=== PATIENT | female | born 1985 | race Caucasian/White ===

== ENCOUNTER 2016-10-04 21:38 | Emergency (ER) | payer SELFPAY ==
[2016-10-04 23:04] VITALS: BP 156/83
== END 2016-10-04 23:04 | disposition home or self-care (01) ==
LOC: ED 21:38
DX: H66.42 Suppurative otitis media, unspecified, left ear (principal); R03.0 Elevated blood-pressure reading, without diagnosis of hypertension
CPT/HCPCS: 90715; J2001

== ENCOUNTER 2016-12-11 09:31 | Emergency (ER) | payer SELFPAY ==
[~2016-12-11] VITALS: Ht 170.2 cm; Wt 113.4 kg
[2016-12-11 10:29] LABS: PLATELET COUNT 298 x10^3mcL (130-400)
[2016-12-11 10:30] LABS: RED CELL DISTRIBUTION WIDTH 15.7 % (11.5-14.5)
[2016-12-11 10:38] LABS: CALCIUM 8.9 mg/dL (8.5-10.1); CARBON DIOXIDE 26.8 mmol/L (21-32); CHLORIDE SERUM 105 mmol/L (98-107); CREATININE SERUM 0.9 mg/dL (0.6-1.0); GFR1 > 60 mL/min; GLUCOSE SERUM 107 mg/dL (74-106); POTASSIUM SERUM 4.9 mmol/L (3.5-5.1); SODIUM SERUM 139 mmol/L (136-145)
[2016-12-11 10:42] LABS: ALKALINE PHOSPHATASE 92 U/L (46-116); ALT/SGPT 33 U/L (14-59); AMYLASE 49 U/L (25-115); AST/SGOT 14 U/L (15-37); BILIRUBIN TOTAL 0.21 mg/dL (0.20-1.00); LIPASE 142 IU/L (73-393); TOTAL PROTEIN, SERUM 7.3 g/dL (6.4-8.2)
[2016-12-11 10:43] LABS: ALBUMIN 3.1 g/dL (3.4-5.0)
[2016-12-11 12:18] LABS: AMPHETAMINE QUAL UR NONE DETECTED (NEG <=1000)
[2016-12-11 13:50] VITALS: BP 128/71
== END 2016-12-11 13:50 | disposition home or self-care (01) ==
LOC: ED 09:31
PROVIDERS: Emergency Medicine
DX: K80.20 Calculus of gallbladder without cholecystitis without obstruction (principal); K21.9 Gastro-esophageal reflux disease without esophagitis; F17.200 Nicotine dependence, unspecified, uncomplicated
CPT/HCPCS: 83880; 99406; J1885; J2270; J2405; J3010; J7030; Q0162

== ENCOUNTER 2017-09-05 05:51 | Emergency (ER) | payer SELFPAY ==
[~2017-09-05] VITALS: Ht 170.2 cm; Wt 117.9 kg
[2017-09-05 06:44] LABS: BASOPHIL % 0.3 % (0-2); PLATELET COUNT 289 x10^3mcL (130-400)
[2017-09-05 06:45] LABS: RED CELL DISTRIBUTION WIDTH 15.8 % (11.5-14.5)
[2017-09-05 06:50] LABS: CALCIUM 9.1 mg/dL (8.5-10.1); CARBON DIOXIDE 24.8 mmol/L (21-32); CHLORIDE SERUM 102 mmol/L (98-107); CREATININE SERUM 0.9 mg/dL (0.6-1.0); GFR1 > 60 mL/min; GLUCOSE SERUM 100 mg/dL (74-106); POTASSIUM SERUM 3.9 mmol/L (3.5-5.1); SODIUM SERUM 138 mmol/L (136-145)
[2017-09-05 06:58] LABS: ALBUMIN 3.5 g/dL (3.4-5.0); ALKALINE PHOSPHATASE 93 U/L (46-116); ALT/SGPT 32 U/L (14-59); AMYLASE 55 U/L (25-115); AST/SGOT 14 U/L (15-37); BILIRUBIN TOTAL 0.2 mg/dL (0.20-1.00); LIPASE 178 IU/L (73-393)
[2017-09-05 07:00] LABS: TOTAL PROTEIN, SERUM 8.3 g/dL (6.4-8.2)
[2017-09-05 07:52] LABS: rbc morphology (normal/abnorm) ABNORMAL (NORMAL)
[2017-09-05 09:44] VITALS: BP 117/74
== END 2017-09-05 09:44 | disposition home or self-care (01) ==
LOC: ED 05:51
PROVIDERS: Emergency Medicine
DX: K80.20 Calculus of gallbladder without cholecystitis without obstruction (principal); E66.9 Obesity, unspecified; K21.9 Gastro-esophageal reflux disease without esophagitis
CPT/HCPCS: 83880; J2405; J3010; J7030

== ENCOUNTER 2018-04-26 12:32 | Emergency (ER) | payer BC ==
[~2018-04-26] VITALS: Ht 167.6 cm; Wt 120.7 kg
[2018-04-26 12:50] VITALS: Ht 167.6 cm; Wt 120.7 kg
[2018-04-26 13:48] LABS: CARBON DIOXIDE 22.4 mmol/L (21-32); CHLORIDE SERUM 102 mmol/L (98-107); CREATININE SERUM 0.8 mg/dL (0.6-1.0); GFR1 > 60 mL/min; GLUCOSE SERUM 129 mg/dL (74-106); SODIUM SERUM 135 mmol/L (136-145)
[2018-04-26 13:52] LABS: ALKALINE PHOSPHATASE 109 U/L (46-116); ALT/SGPT 45 U/L (14-59); AST/SGOT 19 U/L (15-37); BILIRUBIN TOTAL 0.2 mg/dL (0.20-1.00); LIPASE 130 IU/L (73-393)
[2018-04-26 13:54] LABS: ALBUMIN 3.2 g/dL (3.4-5.0); TOTAL PROTEIN, SERUM 8.3 g/dL (6.4-8.2)
[2018-04-26 14:00] LABS: PLATELET COUNT 108 x10^3mcL (130-400); RED CELL DISTRIBUTION WIDTH 16.1 % (11.5-14.5)
[2018-04-26 14:05] LABS: ATYPICAL LYMPH 4 %; MONOCYTE 3 % (0-7); SEGMENTED NEUTROPHILS 76 % (37-75); rbc morphology (normal/abnorm) ABNORMAL (NORMAL)
[2018-04-26 15:36] VITALS: BP 117/86
== END 2018-04-26 15:31 | disposition home or self-care (01) ==
LOC: ED 12:32
PROVIDERS: Emergency Medicine
DX: K29.70 Gastritis, unspecified, without bleeding (principal); Z90.49 Acquired absence of other specified parts of digestive tract; Z87.19 Personal history of other diseases of the digestive system
CPT/HCPCS: 36415; J1885; Q0092

== ENCOUNTER 2018-12-10 15:33 | Emergency (ER) | payer SELFPAY ==
[~2018-12-10] VITALS: Ht 170.2 cm; Wt 124.7 kg
[2018-12-10 15:45] VITALS: Ht 170.2 cm; Wt 124.7 kg
[2018-12-10 16:12] LABS: BASOPHIL % 1.4 % (0-2); PLATELET COUNT 312 x10^3mcL (130-400)
[2018-12-10 16:19] LABS: CALCIUM 9.3 mg/dL (8.5-10.1); CARBON DIOXIDE 27.5 mmol/L (21-32); CHLORIDE SERUM 103 mmol/L (98-107); CREATININE SERUM 0.8 mg/dL (0.6-1.0); GFR1 > 60 mL/min; GLUCOSE SERUM 107 mg/dL (74-106); POTASSIUM SERUM 4.3 mmol/L (3.5-5.1); SODIUM SERUM 138 mmol/L (136-145)
[2018-12-10 16:24] LABS: ALBUMIN 3.4 g/dL (3.4-5.0); ALKALINE PHOSPHATASE 93 U/L (46-116); ALT/SGPT 39 U/L (14-59); AST/SGOT 16 U/L (15-37); BILIRUBIN TOTAL 0.54 mg/dL (0.20-1.00); LIPASE 103 IU/L (73-393); TOTAL PROTEIN, SERUM 7.9 g/dL (6.4-8.2)
[2018-12-10 20:28] VITALS: BP 151/77
== END 2018-12-10 20:28 | disposition home or self-care (01) ==
LOC: ED 15:33
DX: K29.70 Gastritis, unspecified, without bleeding (principal); K21.9 Gastro-esophageal reflux disease without esophagitis; Z90.49 Acquired absence of other specified parts of digestive tract
CPT/HCPCS: 99406; J1885; J2270; J2405; J7030

== ENCOUNTER 2019-05-02 22:29 | Emergency (ER) | payer BC ==
[~2019-05-02] VITALS: Ht 170.2 cm; Wt 127.9 kg
[2019-05-02 22:39] VITALS: Ht 170.2 cm; Wt 127.9 kg
[2019-05-03 00:01] LABS: BASOPHIL % 0.9 % (0-2); PLATELET COUNT 323 x10^3mcL (130-400); RED CELL DISTRIBUTION WIDTH 16.1 % (11.5-14.5)
[2019-05-03 00:42] LABS: CALCIUM 8.8 mg/dL (8.5-10.1); CARBON DIOXIDE 30.5 mmol/L (21-32); CHLORIDE SERUM 102 mmol/L (98-107); CREATININE SERUM 0.9 mg/dL (0.6-1.0); GFR1 > 60 mL/min; GLUCOSE SERUM 96 mg/dL (74-106); POTASSIUM SERUM 3.3 mmol/L (3.5-5.1); SODIUM SERUM 140 mmol/L (136-145)
[2019-05-03 00:52] LABS: ALBUMIN 3.4 g/dL (3.4-5.0); ALKALINE PHOSPHATASE 101 U/L (46-116); ALT/SGPT 46 U/L (14-59); AST/SGOT 22 U/L (15-37); BILIRUBIN TOTAL 0.2 mg/dL (0.20-1.00); CHOLESTEROL 182 mg/dL (<200); LIPASE 138 IU/L (73-393); T4(THYROXINE) 9.4 ug/dL (4.7-13.3)
[2019-05-03 00:59] LABS: HDL CHOLESTEROL 24 mg/dL (40-60)
[2019-05-03 01:03] LABS: UA SPECIFIC GRAVITY >=1.030 (1.005-1.035); microscopic required? YES; urine erythrocyte 3+ (NEGATIVE)
[2019-05-03 01:15] LABS: AMPHETAMINE QUAL UR NONE DETECTED (See below)
[2019-05-03 01:45] VITALS: BP 109/72
== END 2019-05-03 01:45 | disposition home or self-care (01) ==
LOC: ED 22:29
PROVIDERS: Emergency Medicine
DX: K21.9 Gastro-esophageal reflux disease without esophagitis (principal); F11.20 Opioid dependence, uncomplicated; E11.65 Type 2 diabetes mellitus with hyperglycemia; I10 Essential (primary) hypertension; F17.210 Nicotine dependence, cigarettes, uncomplicated; E78.00 Pure hypercholesterolemia, unspecified; E66.01 Morbid (severe) obesity due to excess calories; Z68.41 Body mass index [BMI] 40.0-44.9, adult; Z90.49 Acquired absence of other specified parts of digestive tract
CPT/HCPCS: 99406; J0500; J2405; J3490; J7030